=== PATIENT | male | born 2005 | race Caucasian/White ===

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

== ENCOUNTER → 2025-04-04 08:54 | Outpatient (REF) | payer BC, SELFPAY ==
--- NOTE | 2025-04-05 16:39 | EEG.RPT ---
Electroencephalogram Report
Recording
Date of EE04/04/25
Type of EEG: Ambulatory
Length of EEG recordin day 31 minutes
Done with Video Recording: Yes
Patient Status: Outpatient
Recording Conditions: Awake, Drowsy and Asleep
Hyperventilation Performed: No
Photic Stimulation Performed: Yes
Report
24 HOUR AMBULATORY EEG SUMMARY
24 HOUR AMBULATORY EEG CONCLUSION(S):
Unremarkable EEG for age
CLINICAL CORRELATION:
A normal EEG may not rule out a diagnosis of epilepsy.
The patient�s logs did not indicate clinical symptoms.
Consideration for multiple day monitoring may be given.
Clinical correlation is advised.
METHODS:
A 21 channel digitized electroencephalogram (EEG) was initiated in the [facility]. The patient wore the device outside of the laboratory and returned after 24 hours for electrode and recorder removal. The 10/20
international system of electrode placement was used with bipolar electrode montage recorded. ECG was monitored. The [employer] quantitative EEG analysis system was utilized.
IMPRESSION(S):
Quality
Fair becoming poor by end of study
Background
Maximal wakefulness: alpha
There was a normal anterior-posterior voltage gradient. With eye opening the background activity changed. No significant asymmetries of background activity noted.
Hyperventilation
Failed to produce driving
Photic Stimulation
Failed to produce driving
Sleep
Drowsiness was suggested by slowing of the background rhythms
Stage I sleep was recorded
Stage 2 sleep was recorded
Slow-wave sleep was recorded
ECG
Unremarkable
== END ==
LOC: EEG 08:54
PROVIDERS: ATTENDING PHYSICIAN Nurse Practitioner Adult Health; FAMILY PHYSICIAN Family Medicine
DX: R56.9 Unspecified convulsions (principal)
CPT/HCPCS: 95708

== ENCOUNTER 2025-09-07 06:54 | Emergency (ER) | payer BC, SELFPAY ==
[2025-09-07 06:58] VITALS: BP 124/84
--- NOTE | 2025-09-07 07:11 | ED.GENMED ---
History of Present Illness
General
Chief Complaint: Overdose Intentional
Time Seen by Provider: 09/07/25 07:03
Nursing documentation reviewed up to this point in time: agreed with
History of Present Illness
History of Present Illness:
20-year-old male brought to the ER by dad for evaluation of overdose. Patient states 4 or 5 hours ago he took 30 tablets of amphetamine salts. He reports these were 25 mg tablets. He was hoping to go to sleep. He denies any complaints at time of
eval other than feeling mildly 'amped up.' He does have a prior history of Xanax abuse which has been related to seizures in the past. Dad at bedside reports that he did overuse Xanax earlier this week. Patient denies any other drug use today.
He denies alcohol use. He denies any prior history of hospitalization for self-harm.
Past History
Past History
ED Past Medical History: None and Psychiatric
ED Past Surgical History: Other (Myringotomy tubes)
Review of Systems
Review of Systems
Allergies reviewed?: Yes
Phy Exam
Physical Exam
Physical Exam:
Patient is awake, alert, appears in no acute distress, head is NCAT, PERRL, EOMI mucous membranes moist, +horizontal nystagmus, conjunctiva pink, heart regular rate and rhythm without murmurs or ectopy, lungs are clear to auscultation without
wheezes rales or rhonchi, no JVD, abdomen is soft and nontender on palpation, extremities without edema, GCS is 15, no clonus, 2+ patellar reflexes
Course
Orders/Labs/Results
Orders:
Orders
09/07/25 07:00
1:1 Observation - Suicide/ Violent Behavior As Directed
Crisis Consult Urgent
Reason for Consult: SI
09/07/25 07:02
Electrocardiogram (*1) Urgent
Reason for Study: Tachycardia
EKG- Treatment ONCE
09/07/25 07:32
Acetaminophen Urgent
Alcohol Urgent
CKMB [CPK Isoenzyme] Urgent
Complete Blood Count/No Diff Urgent
Comprehensive Metabolic Panel Urgent
Salicylate Urgent
09/07/25 07:36
Add On- LAB Urgent
Tests Added?: ckmb
Abnormal Lab Results
09/07/25
07:32
MPV 11.0 H fL
(7.4-10.4)
Total Bilirubin 2.4 H mg/dl
(0.2-1.3)
Total Protein 8.4 H g/dl
(6.3-8.2)
Albumin 5.1 H g/dl
(3.5-5.0)
Salicylates < 1.0 L mg/dl
(2.0-20.0)
Acetaminophen < 10 L ug/ml
(10-30)
09/07/25 07:32
09/07/25 07:32
Mild elevation in bilirubin, although had previously been elevated on labs from 03/01/2024, would suspect Gilbert or similar benign etiology given LFTs are otherwise within normal limits. CBC within normal limits
Vital Signs
Initial and Last Documented VS:
Initial Vital Signs
Temp Pulse Resp BP Pulse Ox
98 F 132 16 124/84 98
09/07/25 06:58 09/07/25 06:58 09/07/25 06:58 09/07/25 06:58 09/07/25 06:58
Last Documented Vital Signs
Temp Pulse Resp BP Pulse Ox
98 F 75 18 147/91 98
09/07/25 06:58 09/07/25 10:00 09/07/25 08:39 09/07/25 08:39 09/07/25 09:30
MDM/Problems Addressed
Differential Diagnosis Includes:
Differential diagnosis to consider but not limited to polysubstance use disorder, Co-ingestion, suicide attempt, electrolyte dyscrasia, arrhythmia, along with other etiologies considered
Chronic conditions affecting care:
substance use disorder
*Pulse Oximetry
SaO2: 98
Oxygen Mode of Delivery: Room air
Patient hypoxic: no
*EKG
Interpreted by ED Provider?: Yes (I independently viewed and interpreted twelve-lead EKG showing normal sinus rhythm, rate 65, normal axis, normal intervals, no ST elevation, this is a normal tracing without evidence for ischemia)
*Partition Assembly Machine Operator Interpretation
Rate: normal (I dependently viewed and interpreted rhythm strip showing normal sinus rhythm, no ectopy)
*Critical Care Note
Total Time (30-74mins, 75-104mins- exclusive of procedures): Not Applicable
Data Reviewed
Review of Other/Old Records Reveals: Discharge Summary (I reviewed discharge summary from Dr. Hampton dated 03/02/2024. Patient had been admitted for treatment of seizure disorder. In review of the summary, seizures were felt to be related to
insomnia.)
Update Note
Update Note:
0735: I reviewed full pt presentation with Dr Wilks, toxicology. I reviewed with him current workup. He would request addition of CK. He would expect patient to be symptomatic at this point. If patient remains in asymptomatic after 2 more hours
of observation he would feel him to be cleared for psychiatric placement. IVF ordered.
0910: Very reassuring VS. Awaiting [facility] and crisis consult for placement
0925: Patient evaluated by crisis, signed 201, is willing for placement. Awaiting bed search
1020: Pt accepted at [facility]. Family is going to transport him directly there. Will plan for d/c at 1220 as bed available at 1300 today
ED Attending Note
-
Portions of this chart may have been created with voice recognition software.� Occasional wrong word or��sound alike� substitutions may have occurred due to the inherent limitations of voice recognition software.
Discharge Plan
Departure
Patient Disposition: Psych Facility
Date of Disposition: 09/07/25
Time of Disposition: 10:58
Discharge Problem:
Intentional overdose, Depression
Prescriptions:
No Action
trazodone 50 mg Tablet
100 mg PO HS PRN (Reason: sleep)
Referrals:
UNKNOWN - PT DOES,NOT KNOW [Family Provider]
Hospital Transfer
Other hospital: [facility]
Interventions
Interventions:
*Risk Screen - Suicide Last Done: 09/07/25 07:00
*General Assessment Last Done: 09/07/25 07:00
*Neglect/Abuse Screening Last Done: 09/07/25 07:00
*ED- Fall Risk Assessment Last Done: 09/07/25 07:29
*ED COVID-19 Vaccine History Last Done: 09/07/25 07:29
*ED Influenza Vaccine History Last Done: 09/07/25 07:29
*Nursing Disposition Last Done: 09/07/25 12:25
ED- Cardiac Assessment Last Done: 09/07/25 07:29
ED- Neurological Assessment Last Done: 09/07/25 07:29
ED-Psychological Assessment Last Done: 09/07/25 07:29
ED- Pulmonary Assessment Last Done: 09/07/25 07:29
Discharge Date and Time
Discharge Date/Time: 09/07/25 12:25
Print Language: GERMAN
[2025-09-07 07:29] VITALS: BMI 22.6
[2025-09-07 07:36] VITALS: BP 163/97
[2025-09-07 07:46] LABS: Hematocrit 49.4 % (39.0-52.0); Hemoglobin 17.3 g/dL (13.0-18.0); Mean Corp Hgb Conc. 35.0 g/dL (33.0-37.0); Mean Corpuscular Volume 83.7 fL (80.0-94.0); Platelet Count 221 10^3/uL (130-400); Red Cell Dist. Width 12.4 % (11.5-14.5)
[2025-09-07 08:21] LABS: ALT (SGPT) 20 U/L (0-50); AST (SGOT) 27 U/L (17-59); Acetaminophen < 10 ug/ml (10-30); Albumin 5.1 g/dl (3.5-5.0); Alkaline Phosphatase 91 U/L (38-126); Blood Urea Nitrogen 13 mg/dl (9-20); Calcium 9.8 mg/dl (8.4-10.2); Carbon Dioxide 23 mmol/L (22-30); Chloride 102 mmol/L (98-107); Estimated Creatinine Clearance > 125 ml/min; Glucose 93 mg/dl (70-99); Potassium 3.9 mmol/L (3.5-5.1); Salicylate < 1.0 mg/dl (2.0-20.0); Sodium 137 mmol/L (135-145); Total Protein 8.4 g/dl (6.3-8.2); eGFR > 60.00
[2025-09-07 08:39] VITALS: BP 147/91
[2025-09-07 10:13] LABS: CKMB 0.6 ng/ml (0.0-3.4)
== END 2025-09-07 12:25 ==
LOC: EMR 06:54
PROVIDERS: EMERGENCY PHYSICIAN Emergency Medicine
DX: T43.622A Poisoning by amphetamines, intentional self-harm, initial encounter (principal); F32.A Depression, unspecified; R00.0 Tachycardia, unspecified; F13.10 Sedative, hypnotic or anxiolytic abuse, uncomplicated; G40.909 Epilepsy, unspecified, not intractable, without status epilepticus
CPT/HCPCS: 99285; 80053; 80143; 80179; 82077; 82550; 82553; 85027; 93005